=== PATIENT | male | born 1995 | race Caucasian/White ===

== ENCOUNTER 2018-09-21 00:46 | Emergency (ER) | payer OTHER ==
[~2018-09-21] VITALS: Ht 182.9 cm; Wt 92.7 kg
[2018-09-21] MEDS ORDERED: ONDANSETRON 4 MG ORAL DISINTEGRATING TAB (Q0162 PER 1MG) PO ONE (01:15)
[2018-09-21 02:02] LABS: INFLUENZA A AMPLIFICATION NEGATIVE (NEGATIVE); INFLUENZA B AMPLIFICATION NEGATIVE (NEGATIVE)
[2018-09-21] MEDS ORDERED: ONDA4TAB6 PO (02:20)
[2018-09-21 02:25] VITALS: BP 133/77
== END 2018-09-21 02:27 | disposition home or self-care (01) ==
LOC: M ED 00:46
DX: R11.10 Vomiting, unspecified (principal); R19.7 Diarrhea, unspecified; J45.909 Unspecified asthma, uncomplicated
CPT/HCPCS: 87502; 99283; Q0162